=== PATIENT | male | born 1955 | race Caucasian/White ===

== ENCOUNTER → 2017-10-11 | Day surgery (SDC) | payer OTHER ==
[2017-09-26 15:16] VITALS: BMI 48.0
--- NOTE | 2017-09-26 15:56 | PAT Medication Instructions ---
Service Date Sep 26, 2017. Current Home Medication List Ibuprofen (Advil), 600 MG PO QAM Medication Instructions For Your Scheduled Surgery - Check with surgeon for instructions: Ibuprofen (Advil), 600 MG PO QAM If you have any questions please call us at [phone] or [phone] or [phone]
[2017-09-26 16:25] LABS: BASO % 1.3 %; BASO ABS # 0.09 K/uL (0-0.2); EOS % 4.1 %; EOS ABS # 0.29 K/uL (0-0.5); HEMATOCRIT 46.4 % (42-52); HEMOGLOBIN 15.9 g/dL (14.0-18.0); IG# 0.03 K/uL (0.00-0.02); LYMPH % 22.3 %; LYMPH ABS # 1.59 K/uL (1.2-3.4); MEAN CELL VOLUME 99.6 fL (80-100); MEAN CORPUSCULAR HEMOGLOBIN 34.1 pg (25-34); MEAN CORPUSCULAR HGB CONC 34.3 g/dl (32-36); MEAN PLATELET VOLUME 10.5 fL (7.4-10.4); MONO % 11.5 %; MONO ABS # 0.82 K/uL (0.11-0.59); NEUT % 60.4 %; NEUT ABS # 4.32 K/uL (1.4-6.5); PLATELET COUNT 205 K/uL (130-400); RED CELL DISTRIBUTION WIDTH CV 13.4 % (11.5-14.5); RED CELL DISTRIBUTION WIDTH SD 48.4 fL (36.4-46.3); WHITE BLOOD COUNT 7.14 K/uL (4.8-10.8)
[2017-09-26 16:36] LABS: PTT PATIENT 28.5 SECONDS (21.0-31.0)
[2017-09-26 17:10] LABS: CALCIUM 8.8 mg/dl (8.5-10.1); CREATININE 1.07 mg/dl (0.60-1.40); POTASSIUM 4.3 mmol/L (3.5-5.1)
[2017-09-26 17:12] LABS: ALBUMIN 3.2 gm/dl (3.4-5.0); ALKALINE PHOSPHATASE 65 U/L (45-117); ALT/SGPT 33 U/L (12-78); AST/SGOT 23 U/L (15-37); TOTAL PROTEIN 7.7 gm/dl (6.4-8.2)
--- NOTE | 2017-10-10 10:44 | HISTORY & PHYSICAL EXAMINATION ---
DATE OF ADMISSION: 10/11/2017 CHIEF COMPLAINT: Left knee pain. HISTORY OF PRESENT ILLNESS: The patient is a 61-year-old gentleman, seen and evaluated in our office for left knee pain and disability. He had x-rays, which showed minimal degenerative changes. He had an MRI, which shows a complex tear of the medial meniscus. He is now scheduled for a left knee arthroscopy and partial medial meniscectomy. Due to his morbid obesity, his procedure is to be done at the hospital. PAST MEDICAL HISTORY: Osteoarthritis and obesity. PAST SURGICAL HISTORY: Umbilical hernia repair. MEDICATIONS: Over the counter Advil. ALLERGIES: STRAWBERRIES. SOCIAL HISTORY: He states 6 pack a day alcohol use. REVIEW OF SYSTEMS: Noncontributory. PHYSICAL EXAMINATION: GENERAL: Well-nourished and well-developed, obese male who appears his stated age. HEENT: Normocephalic and atraumatic. Extraocular movements intact. Oropharynx is pink and moist. NECK: Supple without adenopathy. LUNGS: Clear to auscultation bilaterally. HEART: Regular rate and rhythm. ABDOMEN: Soft, nontender, nondistended, and obese. EXTREMITIES: The upper extremities are within normal limits. Left knee range of motion is from 0-100 degrees. He complains primarily of medial compartment pain. He has a positive Yann's. X-RAYS: X-rays and MRI are reviewed. The x-ray showed minimal degenerative changes. MRI shows a complex tear of the medial meniscus. ASSESSMENT: Left knee medial meniscus tear. PLAN: Risks versus benefits were discussed. Consent was obtained. We will proceed with left knee arthroscopy and partial medial meniscectomy as indicated.
[~2017-10-11] VITALS: Ht 170.2 cm; Wt 141.6 kg
[~2017-10-11] MED LIST: ATROPINE SULFATE 0.1 MG/ML 5ML SYR IV PRN; BUPIVACAINE/EPINEPHRINE 0.5% MPF 1:200,000 30 ML VIAL ONE; CEFAZOLIN SOD 1 GM VIAL ONE; DEXAMETHASONE SOD INJ 4 MG/ML VIAL ONE; EpHEDrine SULFATE INJ 50 MG/ML AMP IV PRN; EpINEphrine HCL INJ 1 MG/ML 1ML SYRINGE ONE; FENTANYL CITRATE INJ 50 MCG/1 ML 2 ML VIAL IV PRN; FENTANYL CITRATE INJ 50 MCG/1 ML 2 ML VIAL ONE; GLYCOPYRROLATE INJ 0.2 MG/ML VIAL ONE; HYDR-5688 PO; HYDROCODONE/ACETAMIN 5/325MG TAB ONE; HYDROCODONE/ACETAMIN 5/325MG TAB PO PRN; IBUP-1050 PO; LACTATED RINGER'S 1000ML 1,000 ML IV SCH; LIDOCAINE HCL 2% 2 ML VIAL (20MG/ML) ONE; MIDAZOLAM HCL 1 MG/ML 2ML VIAL ONE; ONDANSETRON INJ 2 MG/ML 2 ML VIAL IV PRN; ONDANSETRON INJ 2 MG/ML 2 ML VIAL ONE; PROPOFOL IV EMULSION 10 MG/ML 20 ML VIAL IV ONE; ROCURONIUM BROMIDE 10 MG/ML 5 ML VIAL IV ONE; SODIUM CHLORIDE 0.9% 1000ML 1,000 ML IV SCH; SUCCINYLCHOLINE 100MG/5ML SYR IV ONE
[2017-10-11 05:31] VITALS: PULSE 93; TEMP 36.4; O2SAT 98; Ht 170.2 cm; Wt 141.6 kg
[2017-10-11 05:45] VITALS: BP 155/108
--- NOTE | 2017-10-11 06:55 | History & Physical Bridge Note ---
H&P Re-Evaluation Bridge Note: I have examined the patient, reviewed the History & Physical and in the interval since the performance of the History & Physical I have noted the following changes of clinical significance: No changes noted
--- NOTE | 2017-10-11 07:33 | Discharge Instructions ---
Discharge Instructions Date of Service Oct 11, 2017. Visit Reason for Visit: Left Knee Medial Meniscus Tear Discharge Discharge Diagnosis / Problem: Left knee medial meniscus tear Discharge Goals Goal(s): Decrease discomfort, Improve function Activity Recommendations Activity Limitations: as noted below Weightbearing Status: Left weightbearing (as tolerated) Anesthesia . Post Anesthesia Instructions: If you have had General Anesthesia or IV Sedation: * Do not drive today. * Resume driving when surgeon permits. * Do not make important decisions or sign legal documents today. * Call surgeon for: 1. Temperature elevations greater than 101 degrees F. 2. Uncontrollable pain. 3. Excessive bleeding. 4. Persistent nausea and vomiting. 5. Medication intolerance (nausea, vomiting or rash). * For nausea and vomiting use only clear liquids such as: tea, soda, bouillon until nausea subsides, then gradually increase diet as tolerated. * If you have any concerns or questions, call your surgeon's office. If physician is unavailable and it is an emergency, call 911 or go to the nearest emergency room. . Instructions / Follow-Up Instructions / Follow-Up ACTIVITY RECOMMENDATIONS: * You may walk on the leg with or without crutches as comfort permits. * Bending of the knee should start at once. * Do not shower for 48 hours following surgery. SPECIAL CARE INSTRUCTIONS: * You may cleanse the skin adjacent to the small wounds with soap and water at the time of the first dressing change. * The application of an ice bag to the front and sides of the knee will decrease swelling and discomfort for the first 48 hours. * The small incisions may be sore and develop bruising. This bruising does not require any special care. SPECIAL PRECAUTIONS: * If you experience unusual pain unrelieved by prescriptions, temperature elevation (100 degrees F. or above) or progressive swelling or bleeding, you should contact our office at for further evaluation. * You may have been prescribed pain medication. If you experience nausea and/or fine skin rash, discontinue this medication and contact our office at for an alternate medication. DRESSING: * Dressing should be comfortable and absorb any leakage of fluid and/or blood. * The dressing may become moist or bloodstained. * Dressing may be removed 48 hours after surgery and bandaids placed over the small surgical incisions. If can be removed sooner if it becomes very soiled or loose. * Bandaids may be used over next several days as needed and can be discontinued when there is not further drainage from the wounds. FOLLOW UP VISIT: If appointment is not already scheduled: Please call [facility] to make a follow-up appointment for your surgery at . Diet Recommendations Recommended Home Diet: resume previous diet Pending Studies Studies pending at discharge: no Medical Emergencies . Who to Call and When: Medical Emergencies: If at any time you feel your situation is an emergency, please call 911 immediately. . Non-Emergent Contact Non-Emergency issues call your: Surgeon Call Non-Emergent contact if: temperature is above 101.5, your pain is not controlled, wound has increased drainage, wound has increased redness . . "Provider Documentation" section prepared by Christopher Meade PA-C. . [place] Drug Monitoring Program Search Results: patient reviewed within database, no issues identified
--- NOTE | 2017-10-11 07:49 | [facility] Post Operative Brief Note ---
Immediate Operative Summary Operative Date Oct 11, 2017. Pre-Operative Diagnosis Left Knee Medial Meniscus Tear Post-Operative Diagnosis Same as Preop plus djd mfc Procedure(s) Performed LEFT KNEE ARTHROSCOPY WITH PARTIAL MEDIAL MENISCUS TEAR REPAIR Surgeon Dr. Jenkins [employer] Surgeon(s) Masoud Meade PAC Estimated Blood Loss 5Ml Findings Consistent with Post-Op Diagnosis Specimens None Anesthesia Type General Disposition Accompanied Pt To Recover: no Disposition: Recovery Room / PACU
[2017-10-11 08:55] VITALS: BP 136/89; PULSE 90; TEMP 37; O2SAT 92
--- NOTE | 2017-10-11 09:08 | Anesthesiology Progress Note ---
Anesthesia Post Op Note Date & Time Oct 11, 2017 at 09:08 Vital Signs Pain Intensity: 4 Vital Signs Past 12 Hours Date Time Temp Pulse Resp B/P (MAP) Pulse Ox O2 Delivery O2 Flow Rate FiO2 10/11/17 08:40 37.0 114 20 116/89 92 Nasal Cannula 2 10/11/17 08:30 93 14 136/100 92 Room Air 10/11/17 08:20 105 16 154/99 99 Oxymask 15 10/11/17 08:10 109 20 154/92 97 Oxymask 15 10/11/17 08:01 37.0 101 20 152/90 95 Oxymask 15 10/11/17 05:45 155/108 (124) 10/11/17 05:31 36.4 93 22 98 Room Air Notes Mental Status: alert / awake / arousable, participated in evaluation Pt Amnestic to Procedure: Yes Nausea / Vomiting: adequately controlled Pain: adequately controlled Airway Patency, RR, SpO2: stable & adequate BP & HR: stable & adequate Hydration State: stable & adequate Anesthetic Complications: no major complications apparent
[2017-10-11 10:00] VITALS: BP 128/75; PULSE 97; O2SAT 98
--- NOTE | 2017-10-11 10:24 | OPERATIVE REPORT ---
DATE OF OPERATION: 10/11/2017 PREOPERATIVE DIAGNOSIS: Medial meniscus tear, left knee. POSTOPERATIVE DIAGNOSES: 1. Medial meniscus tear, left knee. 2. Chondrosis medial femoral condyle. PROCEDURE: Arthroscopic partial medial meniscectomy, left knee. SURGEON: Dr. Jenkins. ANESTHESIA: General. COMPLICATIONS: None. DESCRIPTION OF PROCEDURE: Following induction of adequate general anesthesia, the patient's left leg was prepped and draped in usual sterile manner. The limb was exsanguinated with elevation and tourniquet inflated to 350 mmHg. Anterolateral portal was used for the insertion of the arthroscope. Suprapatellar pouch was noted to have some synovitis. Patellofemoral joint showed minimal chondral change. The medial compartment was entered and a medial portal was established and there was found to be a complex flap tear in the posterior horn of the medial meniscus. This was debrided using basket forceps and 4.5 incisor blade. Healthy stable meniscal cartilage remained. An area of type 3 chondral change was noted in the contact area where the flap was contacting. ACL and PCL were identified and probed and found to be intact. A portion of the fat pad was removed to aid in visualization and the knee was brought to [id number] position and lateral compartment was intact. There being no additional pathology, the scope was withdrawn. The wounds were closed using 4-0 nylon simple suture after intra-articular injection of 10 mL of 0.5% Marcaine with epinephrine in each arthroscopic portal. A sterile dressing of Adaptic, 4 x 4's, sterile Webril and a double length Simon was applied. The patient tolerated the procedure well. I attest to the content of the Intraoperative Record and any orders documented therein. Any exception s are noted below.
[2017-10-11 10:30] VITALS: BP 132/76; PULSE 93; O2SAT 96
== END | disposition home or self-care (01) ==
LOC: C.ACU 04:57
DX: S83.232A Complex tear of medial meniscus, current injury, left knee, initial encounter (principal); M94.8X6 Other specified disorders of cartilage, lower leg; M19.90 Unspecified osteoarthritis, unspecified site; X58.XXXA Exposure to other specified factors, initial encounter; E66.01 Morbid (severe) obesity due to excess calories; Z91.018 Allergy to other foods; Z68.42 Body mass index [BMI] 45.0-49.9, adult; Z87.891 Personal history of nicotine dependence; Z98.890 Other specified postprocedural states